=== PATIENT | female | born 1995 | race Two or more races ===

== ENCOUNTER 2022-07-24 21:17 | Inpatient (IN) | payer OTHER ==
[~2022-07-24] VITALS: Ht 165.1 cm; Wt 83.5 kg
== END 2022-07-29 12:58 | disposition home or self-care (01) | DRG 788 ==
LOC: LDR 21:17 → OB/GYN 07-26 17:25
PROVIDERS: ADMIT Obstetrics & Gynecology Obstetrics; ATTEND Obstetrics & Gynecology Obstetrics
PROC: 4A1HXCZ Monitoring of Products of Conception, Cardiac Rate, External Approach (ICD-10-PCS; 2022-07-24)
PROC: BY4FZZZ Ultrasonography of Third Trimester, Single Fetus (ICD-10-PCS; 2022-07-25)
PROC: 10D00Z1 Extraction of Products of Conception, Low, Open Approach (ICD-10-PCS; principal; 2022-07-26 17:00)
DX: O36.8130 Decreased fetal movements, third trimester, not applicable or unspecified (principal); O13.4 Gestational [pregnancy-induced] hypertension without significant proteinuria, complicating childbirth; Z3A.36 36 weeks gestation of pregnancy; Z37.0 Single live birth; Z20.822 Contact with and (suspected) exposure to COVID-19